=== PATIENT | female | born 1980 | race Caucasian/White ===

== ENCOUNTER 2016-10-05 16:22 | Inpatient (IN) | payer OTHER ==
[~2016-10-05] VITALS: Ht 165.1 cm; Wt 56.2 kg
[2016-10-05 17:10] VITALS: BP 128/82; PULSE 60; RESP 18
[2016-10-05 17:49] VITALS: Ht 165.1 cm; Wt 56.2 kg
[2016-10-05] MEDS ORDERED: NACL 0.9% 3 ML SYG IV SCH (18:30)
[2016-10-05] MEDS ORDERED: morphine 2 MG INJ IV PRN (18:30)
[2016-10-05] MEDS ORDERED: HYDROCODONE/APAP (5/325) TAB PO PRN (18:30)
[2016-10-05] MEDS ORDERED: MAGNESIUM HYDROXIDE 30ML CUP PO PRN (18:30)
[2016-10-05] MEDS ORDERED: ONDANSETRON 4 MG INJ IV PRN (18:30)
[2016-10-05] MEDS ORDERED: DOCUSATE SODIUM 100 MG CAP PO PRN (18:30)
[2016-10-05] MEDS ORDERED: ACETAMINOPHEN 325 MG TAB PO PRN (18:30)
[2016-10-05] MEDS ORDERED: ZOLPIDEM 5 MG TAB PO PRN (18:30)
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
[2016-10-05] MEDS: HYDROCODONE/APAP (5/325) TAB PO PRN (21:27)
[2016-10-05 22:42] VITALS: BP 137/73; RESP 18
[2016-10-06] MEDS: HYDROCODONE/APAP (5/325) TAB PO PRN ×3 (03:46→18:43)
[2016-10-06 04:14] LABS: ADD UMIC NO; URINE BILIRUBIN (Dip) NEGATIVE (NEGATIVE); URINE BLOOD (Dip) NEGATIVE (NEGATIVE); URINE COLOR LT. YELLOW (YELLOW); URINE GLUCOSE (Dip) NEGATIVE (NEGATIVE); URINE KETONES (Dip) NEGATIVE (NEGATIVE); URINE LEUKOCYTE ESTERASE (Dip) NEGATIVE (NEGATIVE); URINE NITRITE (Dip) NEGATIVE (NEGATIVE); URINE TOTAL PROTEIN (Dip) NEGATIVE (NEGATIVE); URINE UROBILINOGEN (Dip) 0.2 E.U./dL (0.1-1.0)
[2016-10-06 08:00] VITALS: BP 117/71; RESP 20
[2016-10-06] MEDS ORDERED: ENOXAPARIN 40 MG/0.4 ML SYG SC SCH (09:00)
[2016-10-06 09:08] LABS: ALBUMIN 3.4 g/dl (3.3-4.9); POTASSIUM 4.4 mmol/L (3.5-5.1)
[2016-10-06 09:09] LABS: BASOPHILS % 0.7 % (0.0-2.0); EOSINOPHILS # 0.1 10^3/ul (0.0-0.5); EOSINOPHILS % 1.5 % (0.0-7.0); HEMATOCRIT 29.7 % (37.0-47.0); HEMOGLOBIN 9.9 g/dl (12.0-16.0); LYMPHOCYTES # 0.9 10^3/ul (0.8-2.9); LYMPHOCYTES % 15.4 % (15.0-51.0); MEAN CORPUSCULAR HEMOGLOBIN 30.2 pg (29.0-33.0); MEAN CORPUSCULAR HGB CONC 33.3 g/dl (32.0-37.0); MEAN CORPUSCULAR VOLUME 90.8 fl (82.0-101.0); MEAN PLATELET VOLUME 8.4 fl (7.4-10.4); MONOCYTE # 0.5 10^3/ul (0.3-0.9); MONOCYTES % 7.9 % (0.0-11.0); NEUTROPHIL # 4.6 10^3/ul (1.6-7.5); NEUTROPHILS % 74.5 % (39.0-77.0); PLATELET COUNT 401 10^3/UL (140-440); RED BLOOD COUNT 3.27 10^6/ul (4.20-5.40); RED CELL DISTRIBUTION WIDTH 16.2 % (11.5-14.5); UNCORRECTED WBC 6.1 10^3/ul (4.8-10.8); WHITE BLOOD COUNT 6.1 10^3/ul (4.8-10.8)
[2016-10-06 09:10] LABS: CREATININE 0.56 mg/dl (0.44-1.00)
[2016-10-06 09:11] LABS: ALBUMIN/GLOBULIN RATIO 1.09; BILIRUBIN,INDIRECT 0.7 mg/dl (0-1.1); BILIRUBIN,TOTAL 0.7 mg/dl (0.2-1.3); CALCIUM 8.8 mg/dl (8.4-10.2); CONDITION 1; LH ANALYZER COMMENTS 1; SUSPECT 1; TOTAL PROTEIN 6.5 g/dl (6.1-8.1)
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
[2016-10-06] MEDS: LEVETIRACETAM 750 MG TAB PO SCH ×2 (13:51→20:53)
[2016-10-06 19:00] VITALS: BP 119/74; RESP 20
[2016-10-06] MEDS: DOCUSATE SODIUM 100 MG CAP PO SCH (20:53)
[2016-10-06] MEDS: SENNA TAB PO SCH (20:53)
[2016-10-07] MEDS: HYDROCODONE/APAP (5/325) TAB PO PRN ×4 (00:46→20:32)
[2016-10-07 07:30] VITALS: BP 111/75; RESP 18
[2016-10-07] MEDS: DOCUSATE SODIUM 100 MG CAP PO SCH ×2 (08:51→20:28)
[2016-10-07] MEDS: LEVETIRACETAM 750 MG TAB PO SCH ×2 (08:51→20:28)
[2016-10-07] MEDS ORDERED: SENNA TAB PO SCH (09:00)
[2016-10-07] MEDS ORDERED: BISACODYL 10 MG SUPP PR PRN (14:30)
[2016-10-07 19:30] VITALS: BP 109/62; RESP 19
[2016-10-07] MEDS: SENNA TAB PO SCH (20:28)
[2016-10-08] MEDS: HYDROCODONE/APAP (5/325) TAB PO PRN ×4 (05:22→22:56)
[2016-10-08 07:30] VITALS: BP 87/48; RESP 18
[2016-10-08] MEDS: LEVETIRACETAM 750 MG TAB PO SCH ×2 (09:09→20:03)
[2016-10-08] MEDS: DOCUSATE SODIUM 100 MG CAP PO SCH ×2 (09:09→20:03)
--- NOTE | 2016-10-08 11:24 | CONS ---
Date/Time of Note Date/Time of Note DATE: 10/08/16 TIME: 11:24 Consult Date/Type/Reason Admit Date/Time Oct 05, 2016 at 16:22 Initial Consult Date Subjective RN reports results with bowel program. patient reports pain under adequate control Objective pulm-cta card- s1s2 Vital Signs Date Time Temp Pulse Resp B/P Pulse Ox O2 Delivery O2 Flow Rate FiO2 10/07/16 19:30 98.7 85 19 109/62 97 10/05/16 17:10 Room Air Intake and Output 10/07/16 10/07/16 10/08/16 14:59 22:59 06:59 Intake Total 1080 ml 480 ml Output Total 920 ml Balance 160 ml 480 ml INTERDISCIPLINARY TEAM CONFERENCE BOWEL- Cont BLADDER-Cont SKIN- intact OT- DRESSING-mod/max BATHING-max TOILETING-max PT- BED MOBILITY-max TRANSFERS-max AMBULATION-UA W.C. MOBILITY-max SPEECH- COGNITION-sba A/P- Interdisciplinary team conference held today. Please see interdisciplinary sheet. Working toward d.c. on 10/19 with post discharge follow up of physical therapy, occupational therapy. Results/Medications Result Diagram: 10/06/16 0620 10/06/16 0620 Medications Current Medications Ondansetron HCl (Zofran Inj) 4 mg Q6H PRN IV NAUSEA AND/OR VOMITING; Start at 18:30 Acetaminophen (Tylenol Tab) 650 mg Q6H PRN PO PAIN LEVEL 1-3 OR FEVER; Start at 18:30 Morphine Sulfate (morphine) 2 mg Q4H PRN IV SEVERE PAIN LEVEL 7-10; Start 10/05 at 18:30 Magnesium Hydroxide (Milk Of Mag) 30 ml DAILY PRN PO CONSTIPATION; Start at 18:30 Zolpidem Tartrate (Ambien) 5 mg QHS PRN PO SLEEP; Start 10/05/16 at 18:30 Acetaminophen/ Hydrocodone Bitart ([place] (5/325)) 1 tab Q6H PRN PO PAIN LEVEL 1 -5 Last administered on 10/07/16t 20:32; Admin Dose 1 TAB; Start 10/05/16 at 21: 00 Acetaminophen/ Hydrocodone Bitart ([place] (5/325)) 2 tab Q6H PRN PO PAIN LEVEL 6 -10 Last administered on 10/08/16 05:22; Admin Dose 2 TAB; Start 10/05/16 at 21 :30 Levetiracetam (Keppra) 750 mg BID PO Last administered on 10/08/16 09:09; Admin Dose 750 MG; Start 10/06/16 at 12:00 Docusate Sodium (Colace) 100 mg Q12 PO Last administered on 10/08/16 09:09; Admin Dose 100 MG; Start 10/06/16 at 21:00 Senna (Senokot) 1 tab HS PO Last administered on 10/07/16 20:28; Admin Dose 1 TAB; Start 10/06/16 at 21:00 Bisacodyl (Dulcolax Supp) 10 mg DAILY PRN [place] CONSTIPATION; Start 10/07/16 at 14 :30 FANI DE JESUS MD Oct 08, 2016 11:24
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
[2016-10-08 19:16] VITALS: BP 99/54; RESP 19
[2016-10-08] MEDS: SENNA TAB PO SCH (20:03)
[2016-10-09] MEDS: HYDROCODONE/APAP (5/325) TAB PO PRN ×3 (04:56→20:53)
[2016-10-09 07:13] VITALS: BP 101/63; RESP 18
[2016-10-09] MEDS: DOCUSATE SODIUM 100 MG CAP PO SCH ×2 (09:12→20:51)
[2016-10-09] MEDS: LEVETIRACETAM 750 MG TAB PO SCH ×2 (09:12→20:52)
[2016-10-09] MEDS ORDERED: HYDROCODONE/APAP (5/325) TAB PO PRN (10:50)
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
[2016-10-09 20:02] VITALS: BP 100/63; RESP 18
[2016-10-09] MEDS: SENNA TAB PO SCH (20:52)
[2016-10-10] MEDS: HYDROCODONE/APAP (5/325) TAB PO PRN ×6 (01:35→22:24)
[2016-10-10 08:00] VITALS: BP 97/63; PULSE 75; RESP 18
[2016-10-10] MEDS: LEVETIRACETAM 750 MG TAB PO SCH ×2 (08:41→20:27)
[2016-10-10] MEDS: DOCUSATE SODIUM 100 MG CAP PO SCH ×2 (08:41→20:27)
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
[2016-10-10 20:00] VITALS: BP 108/58; RESP 18
[2016-10-10] MEDS: SENNA TAB PO SCH (20:27)
[2016-10-11] MEDS: HYDROCODONE/APAP (5/325) TAB PO PRN ×5 (02:23→21:54)
[2016-10-11 07:30] VITALS: BP 94/57; RESP 18
[2016-10-11] MEDS: DOCUSATE SODIUM 100 MG CAP PO SCH ×2 (09:06→21:53)
[2016-10-11] MEDS: LEVETIRACETAM 750 MG TAB PO SCH ×2 (09:06→21:53)
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
[2016-10-11 20:00] VITALS: BP 99/55; RESP 18
[2016-10-11] MEDS: SENNA TAB PO SCH (21:53)
[2016-10-12] MEDS: HYDROCODONE/APAP (5/325) TAB PO PRN ×5 (02:00→21:15)
[2016-10-12 07:30] VITALS: BP 101/55; RESP 18
[2016-10-12] MEDS: DOCUSATE SODIUM 100 MG CAP PO SCH ×2 (09:18→21:15)
[2016-10-12] MEDS: LEVETIRACETAM 750 MG TAB PO SCH ×2 (09:18→21:15)
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
[2016-10-12 20:00] VITALS: BP 138/64; RESP 18
[2016-10-12] MEDS: SENNA TAB PO SCH (21:15)
[2016-10-13] MEDS: HYDROCODONE/APAP (5/325) TAB PO PRN ×5 (02:00→21:35)
[2016-10-13] MEDS: LEVETIRACETAM 750 MG TAB PO SCH ×2 (09:33→21:34)
[2016-10-13] MEDS: DOCUSATE SODIUM 100 MG CAP PO SCH ×2 (09:33→21:35)
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
[2016-10-13 19:18] VITALS: BP 105/18; RESP 16
[2016-10-13 19:45] VITALS: BP 113/69; RESP 18
[2016-10-13] MEDS: SENNA TAB PO SCH (21:34)
[2016-10-14] MEDS: HYDROCODONE/APAP (5/325) TAB PO PRN ×5 (01:38→21:21)
[2016-10-14 07:30] VITALS: BP_SYST 103; BP_SYST 125; BP_DIAS 60; BP_DIAS 63; RESP 18
[2016-10-14] MEDS: DOCUSATE SODIUM 100 MG CAP PO SCH ×2 (08:30→20:29)
[2016-10-14] MEDS: LEVETIRACETAM 750 MG TAB PO SCH ×2 (08:30→20:29)
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
[2016-10-14 19:25] VITALS: BP 116/65; RESP 19
[2016-10-14] MEDS: SENNA TAB PO SCH (20:29)
[2016-10-15] MEDS: HYDROCODONE/APAP (5/325) TAB PO PRN ×5 (01:41→21:39)
[2016-10-15 07:30] VITALS: BP 101/59; RESP 18
[2016-10-15] MEDS: LEVETIRACETAM 750 MG TAB PO SCH ×2 (09:49→20:16)
[2016-10-15] MEDS: DOCUSATE SODIUM 100 MG CAP PO SCH ×2 (09:49→20:16)
--- NOTE | 2016-10-15 12:50 | CONS ---
Date/Time of Note Date/Time of Note DATE: 10/15/16 TIME: 12:50 Consult Date/Type/Reason Admit Date/Time Oct 05, 2016 at 16:22 Subjective Overall feeling better Objective Vital Signs Date Time Temp Pulse Resp B/P Pulse Ox O2 Delivery O2 Flow Rate FiO2 10/15/16 07:30 98.1 62 18 101/59 100 Intake and Output 10/14/16 10/14/16 10/15/16 15:00 23:00 07:00 Intake Total 970 ml 240 ml Output Total 301 ml Balance 669 ml 240 ml INTERDISCIPLINARY TEAM CONFERENCE BOWEL- Cont BLADDER-Cont SKIN- facial echymosis improving OT- DRESSING-min BATHING-min TOILETING-min PT- BED MOBILITY-cga TRANSFERS-cga AMBULATION-UA W.C. MOBILITY-sba SPEECH- COGNITION-SC A/P- Interdisciplinary team conference held today. Please see interdisciplinary sheet. Working toward d.cLast on 10/19 with post discharge follow up of physical therapy, occupational therapy. Results/Medications Medications Current Medications Ondansetron HCl (Zofran Inj) 4 mg Q6H PRN IV NAUSEA AND/OR VOMITING; Start at 18:30 Acetaminophen (Tylenol Tab) 650 mg Q6H PRN PO PAIN LEVEL 1-3 OR FEVER; Start at 18:30 Morphine Sulfate (morphine) 2 mg Q4H PRN IV SEVERE PAIN LEVEL 7-10; Start 10/05 at 18:30 Magnesium Hydroxide (Milk Of Mag) 30 ml DAILY PRN PO CONSTIPATION Last administered on 10/14/16 08:31; Admin Dose 30 ML; Start 10/05/16 at 18:30 Zolpidem Tartrate (Ambien) 5 mg QHS PRN PO SLEEP; Start 10/05/16 at 18:30 Levetiracetam (Keppra) 750 mg BID PO Last administered on 10/15/16 09:49; Admin Dose 750 MG; Start 10/06/16 at 12:00 Docusate Sodium (Colace) 100 mg Q12 PO Last administered on 10/15/16 09:49; Admin Dose 100 MG; Start 10/06/16 at 21:00 Senna (Senokot) 1 tab HS PO Last administered on 10/14/16 20:29; Admin Dose 1 TAB; Start 10/06/16 at 21:00 Bisacodyl (Dulcolax Supp) 10 mg DAILY PRN [place] CONSTIPATION; Start 10/07/16 at 14 :30 Acetaminophen/ Hydrocodone Bitart ([place] (5/325)) 1 tab Q4 PRN PO PAIN LEVEL 1- 5 Last administered on 10/09/16 10:59; Admin Dose 1 TAB; Start 10/09/16 at 10: 50 Acetaminophen/ Hydrocodone Bitart ([place] (5/325)) 2 tab Q4 PRN PO PAIN LEVEL 6- 10 Last administered on 10/15/16 12:17; Admin Dose 2 TAB; Start 10/09/16 at 10: 50 FANI DE JESUS MD Oct 15, 2016 12:50
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
[2016-10-15] MEDS: SENNA TAB PO SCH (20:16)
[2016-10-15 20:26] VITALS: BP 120/70; RESP 18
[2016-10-16] MEDS: HYDROCODONE/APAP (5/325) TAB PO PRN ×5 (01:52→20:18)
[2016-10-16 07:37] VITALS: BP 95/60; PULSE 76; RESP 18
[2016-10-16] MEDS: LEVETIRACETAM 750 MG TAB PO SCH ×2 (08:33→20:17)
[2016-10-16] MEDS: DOCUSATE SODIUM 100 MG CAP PO SCH ×2 (08:33→20:16)
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
[2016-10-16 20:00] VITALS: BP 95/60; RESP 18
[2016-10-16] MEDS: SENNA TAB PO SCH (20:16)
[2016-10-17] MEDS: HYDROCODONE/APAP (5/325) TAB PO PRN ×5 (01:10→20:08)
[2016-10-17 07:30] VITALS: BP 98/60; RESP 18
[2016-10-17] MEDS: DOCUSATE SODIUM 100 MG CAP PO SCH ×2 (09:01→20:07)
[2016-10-17] MEDS: LEVETIRACETAM 750 MG TAB PO SCH ×2 (09:01→20:08)
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
[2016-10-17] MEDS: SENNA TAB PO SCH (20:07)
[2016-10-17 20:08] VITALS: BP 110/70; RESP 18
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
[2016-10-18] MEDS: HYDROCODONE/APAP (5/325) TAB PO PRN ×5 (00:52→20:10)
[2016-10-18] MEDS: DOCUSATE SODIUM 100 MG CAP PO SCH ×2 (09:58→20:10)
[2016-10-18] MEDS: LEVETIRACETAM 750 MG TAB PO SCH ×2 (09:58→20:10)
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
[2016-10-18 16:14] VITALS: BP 110/63; RESP 16
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
[2016-10-18 19:58] VITALS: BP 110/57; RESP 18
[2016-10-18] MEDS: SENNA TAB PO SCH (20:10)
[2016-10-19] MEDS: HYDROCODONE/APAP (5/325) TAB PO PRN ×3 (01:15→11:12)
[2016-10-19 07:46] VITALS: BP 98/60; PULSE 61; RESP 20
[2016-10-19] MEDS: DOCUSATE SODIUM 100 MG CAP PO SCH (08:30)
[2016-10-19] MEDS: LEVETIRACETAM 750 MG TAB PO SCH (08:31)
[2016-10-19 09:44] VITALS: BP 98/60; RESP 18
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
== END 2016-10-19 11:50 | disposition home health service (06) | DRG 560 ==
LOC: VRC 16:22
PROVIDERS: ADMIT Physical Medicine & Rehabilitation; ATTEND Family Medicine
DX: S02.19XD Other fracture of base of skull, subsequent encounter for fracture with routine healing (principal); D62 Acute posthemorrhagic anemia; S06.5X9D Traumatic subdural hemorrhage with loss of consciousness of unspecified duration, subsequent encounter; S02.40DD Maxillary fracture, left side, subsequent encounter for fracture with routine healing; S02.82XD Fracture of other specified skull and facial bones, left side, subsequent encounter for fracture with routine healing; S02.40FD Zygomatic fracture, left side, subsequent encounter for fracture with routine healing; S42.022D Displaced fracture of shaft of left clavicle, subsequent encounter for fracture with routine healing; S32.10XD Unspecified fracture of sacrum, subsequent encounter for fracture with routine healing; S32.591D Other specified fracture of right pubis, subsequent encounter for fracture with routine healing; K59.00 Constipation, unspecified; S27.329D Contusion of lung, unspecified, subsequent encounter; F06.31 Mood disorder due to known physiological condition with depressive features; G89.11 Acute pain due to trauma; Z74.09 Other reduced mobility
CPT/HCPCS: 80053; 81003; 83036; 83735; 85025; 87081; 87086; 92507; 92526; 92610; 95852; 97110; 97112; 97163; 97167; 97530; 97535; 97542; J1650; L3675